=== PATIENT | female | born 1960 | race Caucasian/White ===

== ENCOUNTER → 2016-11-02 | Outpatient (CLI) | payer OTHER ==
[~2016-11-02] VITALS: Ht 167.6 cm; Wt 145.5 kg
[~2016-11-02] MED LIST: ASCORBIC ACID500 M3 PO; BUSPAR10 MG PO; CAL-LAC100 MG PO; CHANTIX1 EACH PO; DAILY VALUE1 EACH PO; DYAZIDE, MA1 CAPSULE PO; GEODON80 MG PO; GLUCOPHAGE500 MG PO; LAMICTAL100 MG PO; LASIX10 MG PO; LIPITOR10 MG PO; LITHIUM CARBON300 M1 PO; OMEGA III EPA1000 MG PO; OMEGA-3 FISH1200 MG PO; OTEZLA30 MG PO; POTASSIMIN75 MG PO; TOPAMAX50 MG PO; VITAMIN C100 M1 PO; VITAMIN D-32000 UNI2 PO; ZYPREXA2.5 MG PO
== END | disposition home or self-care (01) ==
LOC: AMB 13:21
PROC: 0DBN8ZX Excision of Sigmoid Colon, Via Natural or Artificial Opening Endoscopic, Diagnostic (ICD-10-PCS; principal; 2016-11-02)
DX: Z12.11 Encounter for screening for malignant neoplasm of colon (principal); Z86.010 Personal history of colon polyps; K63.5 Polyp of colon; K57.30 Diverticulosis of large intestine without perforation or abscess without bleeding; Z83.71 Family history of colonic polyps; I10 Essential (primary) hypertension; F31.9 Bipolar disorder, unspecified; E66.9 Obesity, unspecified; Z68.43 Body mass index [BMI] 50.0-59.9, adult; Z79.84 Long term (current) use of oral hypoglycemic drugs; F17.200 Nicotine dependence, unspecified, uncomplicated
CPT/HCPCS: 88305; 93005; J2250